=== PATIENT | female | born 1955 | race Caucasian/White ===

== ENCOUNTER 2023-10-01 17:01 | Emergency (ER) | payer OTHER, MEDICARE ==
[~2023-10-01] VITALS: Ht 160 cm; Wt 100.7 kg
[~2023-10-01 17:01] MED LIST: ACET325 PO; ERYT250 PO; HYDACE5325 PO; IBUP400 PO; LETR2.5 PO; NAPR500 PO; OXYACE5T PO
[2023-10-01 17:10] VITALS: BP 127/89
== END 2023-10-01 18:29 | disposition home or self-care (01) ==
LOC: ER 17:01
DX: M54.50 Low back pain, unspecified (principal); M79.651 Pain in right thigh; Z79.899 Other long term (current) drug therapy; Z88.0 Allergy status to penicillin; Z88.1 Allergy status to other antibiotic agents; Z88.5 Allergy status to narcotic agent; Z91.048 Other nonmedicinal substance allergy status; W10.1XXA Fall (on)(from) sidewalk curb, initial encounter; Y92.480 Sidewalk as the place of occurrence of the external cause; Y93.01 Activity, walking, marching and hiking
CPT/HCPCS: 72100; 96372; 99283-25; A9270; J1885